=== PATIENT | female | born 1960 | race Two or more races ===

== ENCOUNTER → 2020-05-27 | Outpatient (CLI) | payer MEDICAID ==
[~2020-05-27] MED LIST: ALBU6.7H9 IH; DOCU-150 PO; GABA-290 PO; HYDR-3281 PO; HYDR25TA PO; LEVO50TA8 PO; LORA10TA7 PO; METO25TA6 PO; MOME13HF INH; MONT10TA26 PO; OMEP20CA14 PO; SUMA100T16 PO; TRAM50TA3 PO
== END | disposition home or self-care (01) ==
LOC: LAB 12:24
PROVIDERS: ATTEND Neurological Surgery
DX: Z01.818 Encounter for other preprocedural examination (principal); Z11.59 Encounter for screening for other viral diseases
CPT/HCPCS: C9803; U0003

== ENCOUNTER 2020-05-30 06:22 | Inpatient (IN) | payer MEDICAID ==
[~2020-05-30] VITALS: Ht 157.5 cm; Wt 78.0 kg
[2020-05-30] VITALS (37 sets, daily range): BP systolic 88–133; BP diastolic 50–71
[2020-05-30] MEDS ORDERED: MONT10TA26 PO (07:35)
[2020-05-30] MEDS ORDERED: TRAM50TA3 PO (07:35)
[2020-05-30] MEDS ORDERED: DOCU-150 PO (07:35)
[2020-05-30] MEDS ORDERED: METO25TA6 PO (07:35)
[2020-05-30] MEDS ORDERED: HYDR-3281 PO (07:35)
[2020-05-30] MEDS ORDERED: SUMA100T16 PO (07:35)
[2020-05-30] MEDS ORDERED: LEVO50TA8 PO (07:35)
[2020-05-30] MEDS ORDERED: GABA-290 PO (07:35)
[2020-05-30] MEDS ORDERED: HYDR25TA PO (07:35)
[2020-05-30] MEDS ORDERED: LORA10TA7 PO (07:35)
[2020-05-30] MEDS ORDERED: MOME13HF INH (07:40)
[2020-05-30] MEDS ORDERED: ALBU6.7H9 IH (07:40)
[2020-05-30] MEDS ORDERED: BACITRACIN 50,000 UNITS/VIAL ONE (08:46)
[2020-05-30] MEDS ORDERED: LIDOCAINE HCL/EPINEPHRINE 1%-EPI 1:100,000 20 ML VIAL ONE (08:46)
[2020-05-30] MEDS ORDERED: THROMBIN (BOVINE) 5000 UNITS/VIAL TOP ONE (08:46)
[2020-05-30] MEDS ORDERED: DEXAMETHASONE 4MG/ML 1ML VIAL ONE ×2 (10:19→10:36)
[2020-05-30] MEDS ORDERED: CEFAZOLIN SODIUM 1000MG/VIAL ONE (10:19)
[2020-05-30] MEDS ORDERED: PROPOFOL 200MG/20ML VIAL IV ONE (10:19)
[2020-05-30] MEDS ORDERED: ROCURONIUM BROMIDE 10MG/ML VIAL 5ML IV ONE (10:19)
[2020-05-30] MEDS ORDERED: HYDROMORPHONE HCL/PF 2MG/ML (OR) ONE (10:38)
[2020-05-30] MEDS ORDERED: METOPROLOL TARTRATE 5MG/5ML VIAL IV ONE (10:41)
[2020-05-30] MEDS ORDERED: HYDRALAZINE 20MG/ML VIAL ONE ×2 (10:41→11:57)
[2020-05-30] MEDS ORDERED: GLYCOPYRROLATE 0.2 MG/ML 2ML VIAL ONE (11:37)
[2020-05-30] MEDS ORDERED: NICARDIPINE 100 MG in SODIUM CHLORIDE 0.9% 60 ML IV PRN (11:45)
[2020-05-30] MEDS ORDERED: NALOXONE INJ IV PRN (13:00)
[2020-05-30] MEDS ORDERED: HYDROMORPHONE PCA 10MG/50ML IV PRN (13:00)
[2020-05-30] MEDS ORDERED: DIPHENHYDRAMINE INJ IV PRN (13:00)
[2020-05-30] MEDS: DEXT 5%/LACTATED RINGERS 1,000 ML IV SCH ×2 (13:03→23:59)
[2020-05-30] MEDS: DEXAMETHASONE 4MG/ML 1ML VIAL IV SCH ×2 (13:04→17:00)
[2020-05-30] MEDS ORDERED: DEXTROSE 50% WATER 50ML SYRINGE IV PRN (14:15)
[2020-05-30] MEDS: BLOOD SUGAR DIAGNOSTIC STRIP TEST SCH ×2 (16:43→21:27)
[2020-05-30] MEDS: INSULIN LISPRO 100 UNITS/ML SUBCUT SCH ×2 (16:46→21:31)
[2020-05-30] MEDS ORDERED: ALBUTEROL 6.7GM HFA INHALER INH PRN (17:45)
[2020-05-30] MEDS: MONTELUKAST SODIUM 10MG TABLET PO SCH (18:00)
[2020-05-30] MEDS: ONDANSETRON INJ IV PRN (19:03)
[2020-05-30 20:02] LABS: HEMATOCRIT. 40.6 % (36.0-48.0); HEMOGLOBIN. 13.7 g/dL (12.0-16.0); MEAN CORPUSCULAR HEMOGLOBIN 29.4 pg (28.0-32.0); MEAN CORPUSCULAR VOLUME 87.2 fL (81.0-99.0); MEAN PLATELET VOLUME 7.2 fl (7.4-10.4); PLATELET 310 x1000/uL (130-400); RED BLOOD CELL COUNT 4.66 mill/uL (4.2-5.4); RED CELL DISTRIBUTION WIDTH 13.3 % (11.6-14.6)
[2020-05-30 20:08] LABS: CHLORIDE 104 mEq/L (98-107)
[2020-05-30] MEDS: METOPROLOL TARTRATE 25MG TABLET PO SCH (21:00)
[2020-05-30 21:10] LABS: PLATELET ESTIMATE NORMAL
[2020-05-31] VITALS (28 sets, daily range): BP systolic 68–151; BP diastolic 46–91
[2020-05-31] MEDS: ALBUTEROL (0.083%) 2.5MG/3ML NEB HHN PRN (00:42)
[2020-05-31] MEDS: BLOOD SUGAR DIAGNOSTIC STRIP TEST SCH ×4 (06:02→20:22)
[2020-05-31] MEDS: DEXAMETHASONE 4MG/ML 1ML VIAL IV SCH ×3 (06:03→11:23)
[2020-05-31] MEDS: INSULIN LISPRO 100 UNITS/ML SUBCUT SCH ×4 (06:05→20:22)
[2020-05-31] MEDS: ONDANSETRON INJ IV PRN (08:04)
[2020-05-31] MEDS: DEXT 5%/LACTATED RINGERS 1,000 ML IV SCH ×2 (08:05→17:52)
[2020-05-31] MEDS: IPRATROPIUM/ALBUTEROL 0.5-3(2.5)MG/3ML NEB HHN SCH ×3 (09:16→21:01)
[2020-05-31] MEDS: METOPROLOL TARTRATE 25MG TABLET PO SCH ×2 (09:20→20:22)
[2020-05-31] MEDS: HYDROCHLOROTHIAZIDE 25MG TABLET PO SCH (09:20)
[2020-05-31] MEDS: LORATADINE 10MG TABLET PO SCH (09:20)
[2020-05-31] MEDS: MORPHINE SULFATE 4 MG/ML CPJ (NOT FOR IM USE) IV PRN ×2 (11:46→15:42)
[2020-05-31] MEDS ORDERED: POTASSIUM CHLORIDE INJ 40 MEQ in DEXT 5% WATER 250 ML IV NR (13:30)
[2020-05-31] MEDS: MONTELUKAST SODIUM 10MG TABLET PO SCH (17:47)
[2020-06-01] VITALS: BP 129/79
[2020-06-01] MEDS: IPRATROPIUM/ALBUTEROL 0.5-3(2.5)MG/3ML NEB HHN SCH ×3 (02:32→21:50)
[2020-06-01 04:00] VITALS: BP 138/82
[2020-06-01 05:58] LABS: CHLORIDE 104 mEq/L (98-107)
[2020-06-01 06:17] LABS: BASOPHILS % 0.2 % (0.0-2.0); HEMATOCRIT. 39.4 % (36.0-48.0); HEMOGLOBIN. 13.2 g/dL (12.0-16.0); LYMPHOCYTES % 22.5 % (20.0-50.0); MEAN CORPUSCULAR HEMOGLOBIN 29.1 pg (28.0-32.0); MEAN CORPUSCULAR VOLUME 87.1 fL (81.0-99.0); MEAN PLATELET VOLUME 7.5 fl (7.4-10.4); MONOCYTES % 7.3 % (2.0-8.0); PLATELET 323 x1000/uL (130-400); RED BLOOD CELL COUNT 4.53 mill/uL (4.2-5.4); RED CELL DISTRIBUTION WIDTH 13.5 % (11.6-14.6)
[2020-06-01] MEDS: INSULIN LISPRO 100 UNITS/ML SUBCUT SCH ×4 (06:17→20:30)
[2020-06-01] MEDS: BLOOD SUGAR DIAGNOSTIC STRIP TEST SCH ×4 (06:17→20:23)
[2020-06-01 08:00] VITALS: BP 130/80
[2020-06-01] MEDS: ONDANSETRON INJ IV PRN ×2 (08:02→17:44)
[2020-06-01] MEDS: HYDROCHLOROTHIAZIDE 25MG TABLET PO SCH (08:02)
[2020-06-01] MEDS: LORATADINE 10MG TABLET PO SCH (08:02)
[2020-06-01] MEDS: METOPROLOL TARTRATE 25MG TABLET PO SCH ×2 (08:02→20:29)
[2020-06-01] MEDS: DEXT 5%/LACTATED RINGERS 1,000 ML IV SCH ×2 (08:03→17:45)
[2020-06-01] MEDS: MORPHINE SULFATE 4 MG/ML CPJ (NOT FOR IM USE) IV PRN ×3 (09:38→22:12)
[2020-06-01] MEDS ORDERED: MAGNESIUM/ALUMINUM HYDROXIDE/SIMETHICONE 30ML UDC PO NR (10:45)
[2020-06-01] MEDS: HYDROCODONE/ACETAMINOPHEN 5/325MG TABLET PO PRN ×2 (10:52→17:44)
[2020-06-01 12:00] VITALS: BP 122/77
[2020-06-01] MEDS: ALBUTEROL (0.083%) 2.5MG/3ML NEB HHN PRN (14:03)
[2020-06-01 16:00] VITALS: BP 113/68
[2020-06-01] MEDS ORDERED: OMEPRAZOLE 20MG CAPSULE EXTENDED RELEASE PO NR (17:30)
[2020-06-01] MEDS: MONTELUKAST SODIUM 10MG TABLET PO SCH (17:43)
[2020-06-01] MEDS: OMEPRAZOLE 20MG CAPSULE EXTENDED RELEASE PO SCH (17:44)
[2020-06-01 20:00] VITALS: BP 128/79
[2020-06-02] VITALS: BP 123/75
[2020-06-02] MEDS: IPRATROPIUM/ALBUTEROL 0.5-3(2.5)MG/3ML NEB HHN SCH ×2 (02:00→20:47)
[2020-06-02 04:00] VITALS: BP 133/81
[2020-06-02] MEDS: HYDROCODONE/ACETAMINOPHEN 5/325MG TABLET PO PRN ×2 (04:02→16:38)
[2020-06-02] MEDS: BLOOD SUGAR DIAGNOSTIC STRIP TEST SCH ×4 (06:33→20:42)
[2020-06-02] MEDS: INSULIN LISPRO 100 UNITS/ML SUBCUT SCH ×4 (06:34→20:42)
[2020-06-02] MEDS: OMEPRAZOLE 20MG CAPSULE EXTENDED RELEASE PO SCH (06:38)
[2020-06-02 08:00] VITALS: BP 124/72
[2020-06-02] MEDS ORDERED: POLYETHYLENE GLYCOL 3350 (17GM) 1 DOSE PACK PO SCH (08:00)
[2020-06-02] MEDS: ALBUTEROL (0.083%) 2.5MG/3ML NEB HHN PRN ×2 (08:42→14:03)
[2020-06-02] MEDS: HYDROCHLOROTHIAZIDE 25MG TABLET PO SCH (09:20)
[2020-06-02] MEDS: METOPROLOL TARTRATE 25MG TABLET PO SCH ×2 (09:21→20:33)
[2020-06-02] MEDS: LORATADINE 10MG TABLET PO SCH (09:22)
[2020-06-02] MEDS: POLYETHYLENE GLYCOL 3350 (17GM) 1 DOSE PACK PO SCH (09:22)
[2020-06-02] MEDS: MORPHINE SULFATE 4 MG/ML CPJ (NOT FOR IM USE) IV PRN ×2 (09:23→20:35)
[2020-06-02] MEDS: DEXT 5%/LACTATED RINGERS 1,000 ML IV SCH (09:32)
[2020-06-02 12:00] VITALS: BP 125/78
[2020-06-02 16:00] VITALS: BP 142/92
[2020-06-02] MEDS: MONTELUKAST SODIUM 10MG TABLET PO SCH (17:06)
[2020-06-02 20:00] VITALS: BP 133/77
[2020-06-03] VITALS: BP 109/66
[2020-06-03] MEDS: IPRATROPIUM/ALBUTEROL 0.5-3(2.5)MG/3ML NEB HHN SCH ×3 (02:34→13:30)
[2020-06-03 04:00] VITALS: BP 121/74
[2020-06-03] MEDS: OMEPRAZOLE 20MG CAPSULE EXTENDED RELEASE PO SCH (05:44)
[2020-06-03] MEDS: HYDROCODONE/ACETAMINOPHEN 5/325MG TABLET PO PRN (05:45)
[2020-06-03] MEDS: DEXT 5%/LACTATED RINGERS 1,000 ML IV SCH (05:46)
[2020-06-03] MEDS: BLOOD SUGAR DIAGNOSTIC STRIP TEST SCH ×2 (05:56→11:50)
[2020-06-03] MEDS: INSULIN LISPRO 100 UNITS/ML SUBCUT SCH ×2 (05:56→11:53)
[2020-06-03 06:50] LABS: BASOPHILS % 0.6 % (0.0-2.0); EOSINOPHILS % 5.8 % (0.0-5.0); HEMATOCRIT. 38.2 % (36.0-48.0); HEMOGLOBIN. 12.9 g/dL (12.0-16.0); LYMPHOCYTES % 31.2 % (20.0-50.0); MEAN CORPUSCULAR HEMOGLOBIN 29.2 pg (28.0-32.0); MEAN CORPUSCULAR VOLUME 86.2 fL (81.0-99.0); MEAN PLATELET VOLUME 7.2 fl (7.4-10.4); MONOCYTES % 9.8 % (2.0-8.0); NEUTROPHILS % 52.6 % (40.0-76.0); PLATELET 320 x1000/uL (130-400); RED BLOOD CELL COUNT 4.43 mill/uL (4.2-5.4); RED CELL DISTRIBUTION WIDTH 12.9 % (11.6-14.6)
[2020-06-03 07:16] LABS: CHLORIDE 100 mEq/L (98-107)
[2020-06-03 08:50] VITALS: BP 108/61
[2020-06-03] MEDS: METOPROLOL TARTRATE 25MG TABLET PO SCH (09:15)
[2020-06-03] MEDS: POLYETHYLENE GLYCOL 3350 (17GM) 1 DOSE PACK PO SCH (09:15)
[2020-06-03] MEDS: HYDROCHLOROTHIAZIDE 25MG TABLET PO SCH (09:15)
[2020-06-03] MEDS: LORATADINE 10MG TABLET PO SCH (09:15)
[2020-06-03] MEDS: MORPHINE SULFATE 4 MG/ML CPJ (NOT FOR IM USE) IV PRN (10:34)
[2020-06-03] MEDS ORDERED: POTASSIUM CHLORIDE 20MEQ TABLET SR PO NR (11:00)
[2020-06-03 12:00] VITALS: BP 121/76
[2020-06-03 13:12] VITALS: BP 121/76
[2020-06-03 14:49] VITALS: BP 121/76
== END 2020-06-03 15:30 | DRG 321 ==
LOC: OR 06:22 → MICUNO 06:23 → 5WST 05-31 15:26
PROVIDERS: ADMIT Internal Medicine; ATTEND Internal Medicine
PROC: 0RG10A0 Fusion of Cervical Vertebral Joint with Interbody Fusion Device, Anterior Approach, Anterior Column, Open Approach (ICD-10-PCS; principal; 2020-05-30)
PROC: 00NW0ZZ Release Cervical Spinal Cord, Open Approach (ICD-10-PCS; 2020-05-30)
PROC: 0RB30ZZ Excision of Cervical Vertebral Disc, Open Approach (ICD-10-PCS; 2020-05-30)
PROC: 01N10ZZ Release Cervical Nerve, Open Approach (ICD-10-PCS; 2020-05-30)
PROC: 4A11X4G Monitoring of Peripheral Nervous Electrical Activity, Intraoperative, External Approach (ICD-10-PCS; 2020-05-30)
DX: M50.01 Cervical disc disorder with myelopathy, high cervical region (principal); M48.02 Spinal stenosis, cervical region; M50.11 Cervical disc disorder with radiculopathy, high cervical region; G95.20 Unspecified cord compression; G82.50 Quadriplegia, unspecified; M47.22 Other spondylosis with radiculopathy, cervical region; E11.9 Type 2 diabetes mellitus without complications; E87.6 Hypokalemia; I10 Essential (primary) hypertension; J45.909 Unspecified asthma, uncomplicated; M19.90 Unspecified osteoarthritis, unspecified site; R26.89 Other abnormalities of gait and mobility; M47.12 Other spondylosis with myelopathy, cervical region; R13.10 Dysphagia, unspecified; G89.4 Chronic pain syndrome; E87.1 Hypo-osmolality and hyponatremia; R53.81 Other malaise; D72.829 Elevated white blood cell count, unspecified; M54.5 Low back pain; Z79.890 Hormone replacement therapy; Z79.51 Long term (current) use of inhaled steroids; Z88.0 Allergy status to penicillin; Z91.013 Allergy to seafood; Z91.041 Radiographic dye allergy status; Z82.49 Family history of ischemic heart disease and other diseases of the circulatory system
CPT/HCPCS: 36415; 71045; 72040; 72141; 76000; 80048; 82962; 85025; 86850; 86900; 88305; 88311; 94640; 95925; 95926; 95928; 95929; 97110; 97116; 97162; 97166; 97530; 97535; C1713; J0360; J0690; J1100; J1170; J1815; J2270; J2405; J2704; J3480; J3490; J7060; J7121; L0172

== ENCOUNTER 2020-06-03 15:30 | Inpatient (IN) | payer MEDICAID ==
[~2020-06-03] VITALS: Ht 157.5 cm; Wt 80.7 kg
[2020-06-03 15:30] VITALS: BP 132/68
[~2020-06-03 15:30] MED LIST changes: -OMEP20CA14 PO
[2020-06-03 16:35] VITALS: BP 132/68
[2020-06-03] MEDS: INSULIN LISPRO 100 UNITS/ML SUBCUT SCH ×2 (17:00→20:26)
[2020-06-03] MEDS ORDERED: HYDROCODONE/ACETAMINOPHEN 5/325MG TABLET PO PRN (17:00)
[2020-06-03] MEDS ORDERED: DEXTROSE 50% WATER 50ML SYRINGE IV PRN (17:00)
[2020-06-03] MEDS ORDERED: IPRATROPIUM/ALBUTEROL 0.5-3(2.5)MG/3ML NEB HHN PRN (17:00)
[2020-06-03] MEDS ORDERED: ONDANSETRON HCL 4MG TABLET PO PRN (17:00)
[2020-06-03] MEDS: BLOOD SUGAR DIAGNOSTIC STRIP TEST SCH ×2 (17:00→20:26)
[2020-06-03] MEDS: HYDROCODONE/ACETAMINOPHEN 5/325MG TABLET PO PRN (17:17)
[2020-06-03] MEDS: MONTELUKAST SODIUM 10MG TABLET PO SCH (17:17)
[2020-06-03 20:00] VITALS: BP 129/89
[2020-06-03] MEDS: MOMETASONE XX SCH (20:25)
[2020-06-03] MEDS: LACTULOSE 20G/30ML UDC PO SCH (20:25)
[2020-06-03] MEDS: FORMOTEROL XX SCH (20:25)
[2020-06-03] MEDS: OMEPRAZOLE 20MG CAPSULE EXTENDED RELEASE PO SCH (20:26)
[2020-06-03] MEDS: METOPROLOL TARTRATE 25MG TABLET PO SCH (20:26)
[2020-06-04] MEDS: LACTULOSE 20G/30ML UDC PO SCH (00:05)
[2020-06-04] MEDS: BLOOD SUGAR DIAGNOSTIC STRIP TEST SCH ×4 (05:48→20:27)
[2020-06-04] MEDS: INSULIN LISPRO 100 UNITS/ML SUBCUT SCH ×4 (05:49→20:27)
[2020-06-04] MEDS: HYDROCODONE/ACETAMINOPHEN 5/325MG TABLET PO PRN ×3 (06:21→20:27)
[2020-06-04 08:00] VITALS: BP 130/70
[2020-06-04] MEDS: POLYETHYLENE GLYCOL 3350 (17GM) 1 DOSE PACK PO SCH (09:00)
[2020-06-04] MEDS: MOMETASONE XX SCH ×2 (09:59→16:27)
[2020-06-04] MEDS: LORATADINE 10MG TABLET PO SCH (09:59)
[2020-06-04] MEDS: OMEPRAZOLE 20MG CAPSULE EXTENDED RELEASE PO SCH ×2 (09:59→20:27)
[2020-06-04] MEDS: FORMOTEROL XX SCH ×2 (09:59→16:27)
[2020-06-04] MEDS: HYDROCHLOROTHIAZIDE 25MG TABLET PO SCH (09:59)
[2020-06-04] MEDS: METOPROLOL TARTRATE 25MG TABLET PO SCH ×2 (10:00→20:26)
[2020-06-04 11:04] LABS: BASOPHILS % 0.6 % (0.0-2.0); EOSINOPHILS % 6.8 % (0.0-5.0); HEMATOCRIT. 41.5 % (36.0-48.0); HEMOGLOBIN. 14.1 g/dL (12.0-16.0); MEAN CORPUSCULAR HEMOGLOBIN 29.4 pg (28.0-32.0); MEAN CORPUSCULAR VOLUME 86.7 fL (81.0-99.0); MEAN PLATELET VOLUME 7.3 fl (7.4-10.4); MONOCYTES % 7.7 % (2.0-8.0); NEUTROPHILS % 55.9 % (40.0-76.0); PLATELET 389 x1000/uL (130-400); RED BLOOD CELL COUNT 4.78 mill/uL (4.2-5.4); RED CELL DISTRIBUTION WIDTH 13.2 % (11.6-14.6)
[2020-06-04 11:23] LABS: CHLORIDE 102 mEq/L (98-107)
[2020-06-04] MEDS: MONTELUKAST SODIUM 10MG TABLET PO SCH (16:27)
[2020-06-04 20:00] VITALS: BP 136/98
[2020-06-05] MEDS: BLOOD SUGAR DIAGNOSTIC STRIP TEST SCH ×4 (05:56→20:51)
[2020-06-05] MEDS: INSULIN LISPRO 100 UNITS/ML SUBCUT SCH ×4 (05:56→20:51)
[2020-06-05 07:21] VITALS: BP 114/68
[2020-06-05] MEDS: POLYETHYLENE GLYCOL 3350 (17GM) 1 DOSE PACK PO SCH (08:25)
[2020-06-05] MEDS: OMEPRAZOLE 20MG CAPSULE EXTENDED RELEASE PO SCH (08:26)
[2020-06-05] MEDS: HYDROCHLOROTHIAZIDE 25MG TABLET PO SCH (08:26)
[2020-06-05] MEDS: METOPROLOL TARTRATE 25MG TABLET PO SCH ×2 (08:27→20:46)
[2020-06-05] MEDS: HYDROCODONE/ACETAMINOPHEN 5/325MG TABLET PO PRN ×2 (08:27→17:35)
[2020-06-05] MEDS: LORATADINE 10MG TABLET PO SCH (08:27)
[2020-06-05] MEDS: MOMETASONE XX SCH ×2 (08:28→17:25)
[2020-06-05] MEDS: FORMOTEROL XX SCH ×2 (08:28→17:25)
[2020-06-05] MEDS ORDERED: ACETAMINOPHEN 325MG TABLET PO PRN (08:45)
[2020-06-05] MEDS: TRAMADOL 50MG TABLET PO PRN ×2 (13:39→20:47)
[2020-06-05 15:55] LABS: COLOR URINE YELLOW (YELLOW); KETONES URINE NEGATIVE (NEGATIVE); LEUKOCYTE ESTERASE URINE NEGATIVE (NEGATIVE); NITRITE URINE NEGATIVE (NEGATIVE); OCCULT BLOOD URINE NEGATIVE (NEGATIVE); PH URINE 5.5 (4.5-8.0); PROTEIN URINE NEGATIVE (NEGATIVE); SPECIFIC GRAVITY URINE 1.014 (1.005-1.030); UROBILINOGEN URINE 0.2 E.U./dL (0.2-1.0)
[2020-06-05 16:00] LABS: CLARITY URINE HAZY (CLEAR)
[2020-06-05] MEDS: MONTELUKAST SODIUM 10MG TABLET PO SCH (17:25)
[2020-06-05 20:00] VITALS: BP 134/87
[2020-06-05] MEDS: FAMOTIDINE 20MG TABLET PO SCH (20:46)
[2020-06-06 06:20] LABS: BASOPHILS % 0.5 % (0.0-2.0); EOSINOPHILS % 8.9 % (0.0-5.0); HEMATOCRIT. 39.1 % (36.0-48.0); HEMOGLOBIN. 13.5 g/dL (12.0-16.0); LYMPHOCYTES % 33.2 % (20.0-50.0); MEAN CORPUSCULAR HEMOGLOBIN 29.8 pg (28.0-32.0); MEAN CORPUSCULAR VOLUME 85.9 fL (81.0-99.0); MONOCYTES % 11.1 % (2.0-8.0); NEUTROPHILS % 46.3 % (40.0-76.0); PLATELET 351 x1000/uL (130-400); RED BLOOD CELL COUNT 4.55 mill/uL (4.2-5.4); RED CELL DISTRIBUTION WIDTH 12.8 % (11.6-14.6)
[2020-06-06 06:38] LABS: CHLORIDE 97 mEq/L (98-107)
[2020-06-06 06:47] LABS: PHOSPHORUS 4.2 mg/dL (2.5-4.9)
[2020-06-06] MEDS: BLOOD SUGAR DIAGNOSTIC STRIP TEST SCH ×4 (06:47→21:45)
[2020-06-06 06:50] LABS: TOTAL IRON BINDING CAPACITY 281 ug/dL (250-450)
[2020-06-06 07:02] LABS: FOLIC ACID (FOLATE) SERUM 15.8 ng/mL (>5.38)
[2020-06-06] MEDS: HYDROCODONE/ACETAMINOPHEN 5/325MG TABLET PO PRN (07:29)
[2020-06-06 08:12] VITALS: BP 123/69
[2020-06-06] MEDS: FAMOTIDINE 20MG TABLET PO SCH ×2 (08:40→21:43)
[2020-06-06] MEDS: LORATADINE 10MG TABLET PO SCH (08:40)
[2020-06-06] MEDS: METOPROLOL TARTRATE 25MG TABLET PO SCH ×2 (08:40→21:44)
[2020-06-06] MEDS: HYDROCHLOROTHIAZIDE 25MG TABLET PO SCH (08:40)
[2020-06-06] MEDS: POLYETHYLENE GLYCOL 3350 (17GM) 1 DOSE PACK PO SCH (08:40)
[2020-06-06] MEDS: INSULIN LISPRO 100 UNITS/ML SUBCUT SCH ×4 (08:41→21:00)
[2020-06-06] MEDS: ALBUTEROL MDI XX PRN (08:42)
[2020-06-06] MEDS: FORMOTEROL XX SCH ×2 (08:43→16:34)
[2020-06-06] MEDS: MOMETASONE XX SCH ×2 (08:43→16:34)
[2020-06-06] MEDS ORDERED: MAGNESIUM/ALUMINUM HYDROXIDE/SIMETHICONE 30ML UDC PO SCH (12:30)
[2020-06-06] MEDS: MONTELUKAST SODIUM 10MG TABLET PO SCH (16:33)
[2020-06-06] MEDS: TRAMADOL 50MG TABLET PO PRN (17:45)
[2020-06-06 20:00] VITALS: BP 133/87
[2020-06-06] MEDS ORDERED: LACTULOSE 20G/30ML UDC PO NR (20:00)
[2020-06-07] MEDS: BLOOD SUGAR DIAGNOSTIC STRIP TEST SCH ×4 (06:59→21:50)
[2020-06-07] MEDS: INSULIN LISPRO 100 UNITS/ML SUBCUT SCH ×4 (07:00→21:00)
[2020-06-07 07:30] LABS: T4 FREE 0.98 ng/dL (0.76-1.46)
[2020-06-07 07:44] VITALS: BP 120/93
[2020-06-07] MEDS: HYDROCODONE/ACETAMINOPHEN 5/325MG TABLET PO PRN ×3 (07:49→21:49)
[2020-06-07] MEDS: POLYETHYLENE GLYCOL 3350 (17GM) 1 DOSE PACK PO SCH ×2 (08:23→08:27)
[2020-06-07] MEDS: HYDROCHLOROTHIAZIDE 25MG TABLET PO SCH (08:24)
[2020-06-07] MEDS: METOPROLOL TARTRATE 25MG TABLET PO SCH ×2 (08:24→23:12)
[2020-06-07] MEDS: LORATADINE 10MG TABLET PO SCH (08:24)
[2020-06-07] MEDS: FAMOTIDINE 20MG TABLET PO SCH ×2 (08:24→21:49)
[2020-06-07] MEDS: MOMETASONE XX SCH ×2 (08:26→18:03)
[2020-06-07] MEDS: FORMOTEROL XX SCH ×2 (08:26→18:03)
[2020-06-07] MEDS ORDERED: FAMOTIDINE 20MG TABLET PO SCH (09:00)
[2020-06-07 14:57] VITALS: BP 100/68
[2020-06-07] MEDS: LEVOTHYROXINE SODIUM 50MCG TABLET PO SCH (18:02)
[2020-06-07] MEDS: MONTELUKAST SODIUM 10MG TABLET PO SCH (18:02)
[2020-06-07 20:00] VITALS: BP 120/68
[2020-06-08] MEDS: LEVOTHYROXINE SODIUM 50MCG TABLET PO SCH (06:19)
[2020-06-08] MEDS: BLOOD SUGAR DIAGNOSTIC STRIP TEST SCH ×4 (06:23→21:28)
[2020-06-08] MEDS: INSULIN LISPRO 100 UNITS/ML SUBCUT SCH ×4 (06:23→21:00)
[2020-06-08] MEDS: HYDROCODONE/ACETAMINOPHEN 5/325MG TABLET PO PRN ×2 (07:15→14:02)
[2020-06-08 08:00] VITALS: BP 117/73
[2020-06-08 08:07] VITALS: BP 117/73
[2020-06-08] MEDS: POLYETHYLENE GLYCOL 3350 (17GM) 1 DOSE PACK PO SCH (08:39)
[2020-06-08] MEDS: HYDROCHLOROTHIAZIDE 25MG TABLET PO SCH (08:39)
[2020-06-08] MEDS: FAMOTIDINE 20MG TABLET PO SCH ×2 (08:39→21:28)
[2020-06-08] MEDS: METOPROLOL TARTRATE 25MG TABLET PO SCH ×2 (08:39→21:26)
[2020-06-08] MEDS: LORATADINE 10MG TABLET PO SCH (08:39)
[2020-06-08] MEDS: MOMETASONE XX SCH ×2 (08:42→16:44)
[2020-06-08] MEDS: FORMOTEROL XX SCH ×2 (08:42→16:44)
[2020-06-08 14:01] VITALS: BP 109/64
[2020-06-08] MEDS: DOCUSATE SODIUM 250MG CAPSULE PO SCH (16:42)
[2020-06-08] MEDS: MONTELUKAST SODIUM 10MG TABLET PO SCH (16:42)
[2020-06-08 20:00] VITALS: BP 112/72
[2020-06-08] MEDS: TRAMADOL 50MG TABLET PO PRN (21:27)
[2020-06-09] MEDS: LEVOTHYROXINE SODIUM 50MCG TABLET PO SCH (06:15)
[2020-06-09] MEDS: BLOOD SUGAR DIAGNOSTIC STRIP TEST SCH ×4 (06:15→20:18)
[2020-06-09] MEDS: TRAMADOL 50MG TABLET PO PRN (06:55)
[2020-06-09 08:00] VITALS: BP 119/70
[2020-06-09] MEDS: LORATADINE 10MG TABLET PO SCH (08:19)
[2020-06-09] MEDS: DOCUSATE SODIUM 250MG CAPSULE PO SCH ×2 (08:19→17:22)
[2020-06-09] MEDS: POLYETHYLENE GLYCOL 3350 (17GM) 1 DOSE PACK PO SCH (08:19)
[2020-06-09] MEDS: FAMOTIDINE 20MG TABLET PO SCH ×2 (08:19→20:17)
[2020-06-09] MEDS: METOPROLOL TARTRATE 25MG TABLET PO SCH ×2 (08:20→20:18)
[2020-06-09] MEDS: HYDROCHLOROTHIAZIDE 25MG TABLET PO SCH (08:20)
[2020-06-09] MEDS: MOMETASONE XX SCH ×2 (08:21→17:23)
[2020-06-09] MEDS: FORMOTEROL XX SCH ×2 (08:21→17:23)
[2020-06-09] MEDS: INSULIN LISPRO 100 UNITS/ML SUBCUT SCH ×4 (08:42→20:44)
[2020-06-09] MEDS ORDERED: LACTULOSE 20G/30ML UDC PO SCH (10:00)
[2020-06-09] MEDS ORDERED: MAGNESIUM/ALUMINUM HYDROXIDE/SIMETHICONE 30ML UDC PO NR (10:00)
[2020-06-09] MEDS: MONTELUKAST SODIUM 10MG TABLET PO SCH (17:22)
[2020-06-09 20:00] VITALS: BP 123/78
[2020-06-10] MEDS: BLOOD SUGAR DIAGNOSTIC STRIP TEST SCH ×4 (06:15→20:48)
[2020-06-10] MEDS: LEVOTHYROXINE SODIUM 50MCG TABLET PO SCH (06:15)
[2020-06-10 08:00] VITALS: BP 106/63
[2020-06-10] MEDS: FAMOTIDINE 20MG TABLET PO SCH ×2 (08:33→20:07)
[2020-06-10] MEDS: DOCUSATE SODIUM 250MG CAPSULE PO SCH ×2 (08:33→16:03)
[2020-06-10] MEDS: HYDROCHLOROTHIAZIDE 25MG TABLET PO SCH (08:33)
[2020-06-10] MEDS: LORATADINE 10MG TABLET PO SCH (08:33)
[2020-06-10] MEDS: MOMETASONE XX SCH ×2 (08:35→16:04)
[2020-06-10] MEDS: FORMOTEROL XX SCH ×2 (08:35→16:04)
[2020-06-10] MEDS: POLYETHYLENE GLYCOL 3350 (17GM) 1 DOSE PACK PO SCH (08:36)
[2020-06-10] MEDS: METOPROLOL TARTRATE 25MG TABLET PO SCH ×2 (08:37→20:07)
[2020-06-10 08:39] LABS: BASOPHILS % 0.7 % (0.0-2.0); EOSINOPHILS % 9.7 % (0.0-5.0); HEMATOCRIT. 37.5 % (36.0-48.0); HEMOGLOBIN. 12.6 g/dL (12.0-16.0); LYMPHOCYTES % 34.8 % (20.0-50.0); MEAN CORPUSCULAR HEMOGLOBIN 29.1 pg (28.0-32.0); MEAN CORPUSCULAR VOLUME 86.8 fL (81.0-99.0); MEAN PLATELET VOLUME 7.4 fl (7.4-10.4); MONOCYTES % 9.4 % (2.0-8.0); NEUTROPHILS % 45.4 % (40.0-76.0); PLATELET 344 x1000/uL (130-400); RED BLOOD CELL COUNT 4.32 mill/uL (4.2-5.4)
[2020-06-10 08:54] LABS: CHLORIDE 102 mEq/L (98-107)
[2020-06-10] MEDS: INSULIN LISPRO 100 UNITS/ML SUBCUT SCH ×4 (09:00→20:48)
[2020-06-10 09:02] LABS: PHOSPHORUS 3.7 mg/dL (2.5-4.9)
[2020-06-10 14:13] LABS: 25-HYDROXY VITAMIN D3 30 ng/mL (.)
[2020-06-10] MEDS ORDERED: POTASSIUM CHLORIDE 20MEQ TABLET SR PO NR (15:00)
[2020-06-10] MEDS ORDERED: ERGOCALCIFEROL 50000UNITS CAPSULE PO SCH (15:00)
[2020-06-10] MEDS: MONTELUKAST SODIUM 10MG TABLET PO SCH (16:03)
[2020-06-10 20:00] VITALS: BP 116/71
[2020-06-10] MEDS ORDERED: TRAMADOL 50MG TABLET PO PRN (20:30)
[2020-06-11] MEDS: LEVOTHYROXINE SODIUM 50MCG TABLET PO SCH (06:09)
[2020-06-11] MEDS: BLOOD SUGAR DIAGNOSTIC STRIP TEST SCH ×4 (06:31→20:22)
[2020-06-11 08:02] VITALS: BP 114/72
[2020-06-11] MEDS: HYDROCHLOROTHIAZIDE 25MG TABLET PO SCH (08:54)
[2020-06-11] MEDS: FAMOTIDINE 20MG TABLET PO SCH (08:54)
[2020-06-11] MEDS: DOCUSATE SODIUM 250MG CAPSULE PO SCH ×2 (08:56→16:43)
[2020-06-11] MEDS: METOPROLOL TARTRATE 25MG TABLET PO SCH ×2 (08:56→20:21)
[2020-06-11] MEDS: LORATADINE 10MG TABLET PO SCH (08:56)
[2020-06-11] MEDS: MOMETASONE XX SCH ×2 (08:58→16:43)
[2020-06-11] MEDS: FORMOTEROL XX SCH ×2 (08:58→16:43)
[2020-06-11] MEDS: INSULIN LISPRO 100 UNITS/ML SUBCUT SCH ×4 (09:00→20:37)
[2020-06-11] MEDS: POLYETHYLENE GLYCOL 3350 (17GM) 1 DOSE PACK PO SCH (09:00)
[2020-06-11] MEDS ORDERED: CALCIUM CARBONATE 500MG TABLET CHEW PO SCH (10:00)
[2020-06-11] MEDS: OMEPRAZOLE 20MG CAPSULE EXTENDED RELEASE PO SCH (10:51)
[2020-06-11] MEDS: MONTELUKAST SODIUM 10MG TABLET PO SCH (16:43)
[2020-06-11 20:00] VITALS: BP 121/75
[2020-06-11] MEDS: LACTULOSE 20G/30ML UDC PO SCH (20:20)
[2020-06-12] MEDS: BLOOD SUGAR DIAGNOSTIC STRIP TEST SCH ×4 (06:05→20:31)
[2020-06-12] MEDS: OMEPRAZOLE 20MG CAPSULE EXTENDED RELEASE PO SCH (06:06)
[2020-06-12] MEDS: LEVOTHYROXINE SODIUM 50MCG TABLET PO SCH (06:06)
[2020-06-12] MEDS: INSULIN LISPRO 100 UNITS/ML SUBCUT SCH ×4 (06:11→20:37)
[2020-06-12 07:51] VITALS: BP 104/65
[2020-06-12 08:38] LABS: CHLORIDE 107 mEq/L (98-107)
[2020-06-12] MEDS: POLYETHYLENE GLYCOL 3350 (17GM) 1 DOSE PACK PO SCH ×2 (09:00→09:18)
[2020-06-12] MEDS: METOPROLOL TARTRATE 25MG TABLET PO SCH ×2 (09:00→20:31)
[2020-06-12] MEDS: DOCUSATE SODIUM 250MG CAPSULE PO SCH ×2 (09:17→16:50)
[2020-06-12] MEDS: MOMETASONE XX SCH ×2 (09:17→16:57)
[2020-06-12] MEDS: FORMOTEROL XX SCH ×2 (09:17→16:57)
[2020-06-12] MEDS: HYDROCHLOROTHIAZIDE 25MG TABLET PO SCH (09:18)
[2020-06-12] MEDS: LORATADINE 10MG TABLET PO SCH (09:18)
[2020-06-12] MEDS ORDERED: OMEP20CA14 PO (11:55)
[2020-06-12] MEDS ORDERED: MAGNESIUM/ALUMINUM HYDROXIDE/SIMETHICONE 30ML UDC PO PRN (12:00)
[2020-06-12] MEDS: MONTELUKAST SODIUM 10MG TABLET PO SCH (16:50)
[2020-06-12] MEDS: ALBUTEROL MDI XX PRN (16:56)
[2020-06-12 20:00] VITALS: BP 142/82
[2020-06-12] MEDS: LACTULOSE 20G/30ML UDC PO SCH (20:30)
[2020-06-13] MEDS: BLOOD SUGAR DIAGNOSTIC STRIP TEST SCH ×2 (05:56→11:00)
[2020-06-13] MEDS: LEVOTHYROXINE SODIUM 50MCG TABLET PO SCH (05:57)
[2020-06-13] MEDS: OMEPRAZOLE 20MG CAPSULE EXTENDED RELEASE PO SCH (05:57)
[2020-06-13] MEDS: INSULIN LISPRO 100 UNITS/ML SUBCUT SCH ×2 (06:07→11:00)
[2020-06-13 08:00] VITALS: BP 124/73
[2020-06-13] MEDS: DOCUSATE SODIUM 250MG CAPSULE PO SCH ×2 (08:26→16:39)
[2020-06-13] MEDS: LORATADINE 10MG TABLET PO SCH (08:26)
[2020-06-13] MEDS: HYDROCHLOROTHIAZIDE 25MG TABLET PO SCH (08:26)
[2020-06-13] MEDS: FORMOTEROL XX SCH ×2 (08:27→16:39)
[2020-06-13] MEDS: MOMETASONE XX SCH ×2 (08:27→16:39)
[2020-06-13] MEDS: POLYETHYLENE GLYCOL 3350 (17GM) 1 DOSE PACK PO SCH (09:00)
[2020-06-13] MEDS: METOPROLOL TARTRATE 25MG TABLET PO SCH (09:14)
[2020-06-13 15:00] VITALS: BP 177/77
[2020-06-13 15:04] VITALS: BP 177/77
[2020-06-13] MEDS: MONTELUKAST SODIUM 10MG TABLET PO SCH (16:40)
== END 2020-06-13 16:50 | disposition home health service (06) | DRG 347 ==
PROVIDERS: ADMIT Physical Medicine & Rehabilitation Spinal Cord Injury Medicine; ATTEND Internal Medicine
DX: M48.02 Spinal stenosis, cervical region (principal); M47.812 Spondylosis without myelopathy or radiculopathy, cervical region; I10 Essential (primary) hypertension; J45.909 Unspecified asthma, uncomplicated; R13.10 Dysphagia, unspecified; G95.20 Unspecified cord compression; D72.829 Elevated white blood cell count, unspecified; E11.9 Type 2 diabetes mellitus without complications; E87.1 Hypo-osmolality and hyponatremia; E87.6 Hypokalemia; G82.50 Quadriplegia, unspecified; G89.4 Chronic pain syndrome; M19.90 Unspecified osteoarthritis, unspecified site; R26.89 Other abnormalities of gait and mobility; R20.0 Anesthesia of skin; R20.2 Paresthesia of skin; H25.10 Age-related nuclear cataract, unspecified eye; E11.36 Type 2 diabetes mellitus with diabetic cataract; M54.5 Low back pain; E03.9 Hypothyroidism, unspecified; R42 Dizziness and giddiness; E55.9 Vitamin D deficiency, unspecified; R53.81 Other malaise; E66.9 Obesity, unspecified; K42.9 Umbilical hernia without obstruction or gangrene; T38.0X5A Adverse effect of glucocorticoids and synthetic analogues, initial encounter; R12 Heartburn; H53.122 Transient visual loss, left eye; R03.0 Elevated blood-pressure reading, without diagnosis of hypertension; Z88.0 Allergy status to penicillin; Z91.013 Allergy to seafood; Z91.041 Radiographic dye allergy status; Z79.899 Other long term (current) drug therapy; Z79.51 Long term (current) use of inhaled steroids; Z82.49 Family history of ischemic heart disease and other diseases of the circulatory system; Z83.3 Family history of diabetes mellitus; Z79.4 Long term (current) use of insulin; Y92.89 Other specified places as the place of occurrence of the external cause; Z68.32 Body mass index [BMI] 32.0-32.9, adult
CPT/HCPCS: 36415; 70544; 70553; 71046; 80048; 80053; 81003; 82306; 82607; 82728; 82746; 82962; 83036; 83540; 83550; 83735; 84100; 84134; 84439; 84443; 84481; 85025; 92523; 92610; 93306; 93880; 93970; 97110; 97116; 97162; 97166; 97530; 97535; J1815; L0172

== ENCOUNTER 2023-12-26 15:45 | Emergency (ER) | payer MEDICAID, OTHER ==
[~2023-12-26] VITALS: Ht 157.5 cm; Wt 78.0 kg
[~2023-12-26 15:45] MED LIST changes: +ALBU6.7H3 IH; -ALBU6.7H9 IH; -HYDR-3281 PO; +HYDR-4346 PO; -MOME13HF INH; +MOME13HF11 INH; +MONT-39 PO; -MONT10TA26 PO; +OMEP20CA14 PO
[2023-12-26 15:52] VITALS: O2SAT 99
[2023-12-26 17:09] LABS: BASOPHILS % 0.6 % (0.0-2.0); EOSINOPHILS % 4.4 % (0.0-5.0); HEMATOCRIT. 40.7 % (36.0-48.0); HEMOGLOBIN. 13.7 g/dL (12.0-16.0); LYMPHOCYTES % 32.4 % (20.0-50.0); MEAN CORPUSCULAR HEMOGLOBIN 29.3 pg (28.0-32.0); MEAN CORPUSCULAR HGB CONC 33.6 g/dL (31.0-37.0); MEAN CORPUSCULAR VOLUME 87.3 fL (81.0-99.0); MEAN PLATELET VOLUME 7.2 fl (7.4-10.4); MONOCYTES % 6.8 % (2.0-8.0); NEUTROPHILS % 55.8 % (40.0-76.0); PLATELET 310 x1000/uL (130-400); RED BLOOD CELL COUNT 4.67 mill/uL (4.2-5.4); RED CELL DISTRIBUTION WIDTH 14.4 % (11.6-14.6); WHITE BLOOD COUNT 8.2 x1000/uL (4.5-11.0)
[2023-12-26 17:30] LABS: ALANINE AMINOTRANSFERASE 20 IU/L (10-49); ALBUMIN 4.6 g/dL (3.2-4.8); ASPARTATE AMINOTRANSFERASE 18 IU/L (<34); BILIRUBIN TOTAL 0.3 mg/dL (0.1-1.0); CALCIUM 10.1 mg/dL (8.7-10.4); CARBON DIOXIDE 29 mEq/L (21-32); CHLORIDE 109 mEq/L (98-107); CREATININE 0.7 mg/dL (0.6-1.0); GLUCOSE 159 mg/dL (70-105); POTASSIUM 3.9 mEq/L (3.5-5.1); PROTEIN TOTAL 7.5 g/dL (6.0-8.3); SODIUM 142 mEq/L (136-145); UREA NITROGEN BLOOD 14 mg/dL (9-23)
[2023-12-26 17:33] LABS: TROPONIN I HIGH SENSITIVITY < 4 ng/L (3.0-34)
[2023-12-26] MEDS ORDERED: HYDR-4001 MT (18:37)
[2023-12-26] MEDS ORDERED: P20 PO (18:37)
[2023-12-26 19:26] VITALS: BP 170/98; PULSE 90; RESP 18; TEMP 98.2
[2023-12-26] MEDS: HYDROCODONE/ACETAMINOPHEN 5/325MG TABLET PO ONE (19:29)
[2023-12-26] MEDS: PREDNISONE 20MG TABLET PO ONE (19:29)
[2023-12-26 19:41] LABS: CLARITY URINE CLEAR (CLEAR); COLOR URINE YELLOW (YELLOW); GLUCOSE URINE NEGATIVE (NEGATIVE); KETONES URINE NEGATIVE (NEGATIVE); LEUKOCYTE ESTERASE URINE NEGATIVE (NEGATIVE); NITRITE URINE NEGATIVE (NEGATIVE); OCCULT BLOOD URINE TRACE (NEGATIVE); PH URINE 5.5 (4.5-8.0); PROTEIN URINE NEGATIVE (NEGATIVE); SPECIFIC GRAVITY URINE 1.023 (1.005-1.030); UROBILINOGEN URINE 0.2 E.U./dL (0.2-1.0)
[2023-12-26 19:59] LABS: SQUAMOUS EPITHELIAL CELL URINE FEW /lpf (RARE/1+)
[2023-12-26 20:00] LABS: BACTERIA URINE NONE SEEN; WBC URINE NONE SEEN /hpf (0-2); YEAST URINE NONE SEEN
== END 2023-12-26 19:30 | disposition home or self-care (01) ==
LOC: ER 15:45
DX: R07.89 Other chest pain (principal); R05.9 Cough, unspecified; J45.909 Unspecified asthma, uncomplicated; I10 Essential (primary) hypertension; Z79.899 Other long term (current) drug therapy
CPT/HCPCS: 99285; 71045; 80053; 81003; 81025; 85025; 84484; 36415; 93005; J7512